=== PATIENT | male | born 1935 | race Caucasian/White ===

== ENCOUNTER 2017-05-02 17:28 | Observation (INO) | payer MEDICARE, OTHER ==
[2017-05-02 21:05] LABS: ADD MAN DIFF? NO
[2017-05-02 21:06] LABS: WHITE BLOOD COUNT 8.5 10^3/ul (4.8-10.8)
[2017-05-02 21:06] LABS: BASOPHILS % 0.4 % (0.0-2.0); EOSINOPHILS # 0.3 10^3/ul (0.0-0.5); EOSINOPHILS % 3.8 % (0.0-7.0); HEMATOCRIT 28.3 % (42.0-52.0); HEMOGLOBIN 9.6 g/dl (14.0-18.0); LYMPHOCYTES # 1.5 10^3/ul (0.8-2.9); LYMPHOCYTES % 17.2 % (15.0-51.0); MEAN CORPUSCULAR HEMOGLOBIN 32.4 pg (29.0-33.0); MEAN CORPUSCULAR HGB CONC 33.9 g/dl (32.0-37.0); MEAN CORPUSCULAR VOLUME 95.6 fl (82.0-101.0); MEAN PLATELET VOLUME 9.9 fl (7.4-10.4); MONOCYTES % 11.2 % (0.0-11.0); NEUTROPHIL # 5.7 10^3/ul (1.6-7.5); PLATELET COUNT 222 10^3/UL (140-415); RED BLOOD COUNT 2.96 10^6/ul (4.70-6.10); RED CELL DISTRIBUTION WIDTH 12.1 % (11.5-14.5)
[2017-05-02 21:34] LABS: ANION GAP 18 (8-16); BLOOD UREA NITROGEN 31 mg/dl (7-20); CARBON DIOXIDE 23 mmol/L (21-31); CHLORIDE 99 mmol/L (97-110); CREATININE 1.24 mg/dl (0.61-1.24); GLUCOSE 71 mg/dl (70-220); POTASSIUM 5.5 mmol/L (3.5-5.1); SODIUM 134 mmol/L (135-144)
[2017-05-02] MEDS: morphine 4 MG/ML VIAL IV (21:35)
[2017-05-02] MEDS: ONDANSETRON 4 MG INJ IV (21:36)
[2017-05-02] MEDS: ASPIRIN 81 MG TAB PO (21:36)
[2017-05-02] MEDS: NITROGLYCERIN 2% 1 GM OINT PKT TD (21:36)
[2017-05-02 21:43] LABS: B-TYPE NATRIURETIC PEPTIDE 1060 PG/ML (0-450)
[2017-05-02 21:51] LABS: TROPONIN-I < 0.012 ng/ml (0.00-0.12)
[2017-05-02] MEDS ORDERED: ALPRAZOLAM 1 MG TAB PO (22:30)
[2017-05-02] MEDS ORDERED: ONDANSETRON 4 MG INJ IV (22:30)
[2017-05-02] MEDS ORDERED: morphine 2 MG INJ IV (22:30)
[2017-05-02] MEDS ORDERED: DOCUSATE SODIUM 100 MG CAP PO (22:30)
[2017-05-02] MEDS ORDERED: ACETAMINOPHEN 325 MG TAB PO (22:30)
[2017-05-02] MEDS ORDERED: ONDANSETRON 4 MG TAB PO (22:30)
[2017-05-02] MEDS ORDERED: NACL 0.9% 3 ML SYG IV (22:30)
[2017-05-02] MEDS ORDERED: BISACODYL (EC) 5 MG TAB PO (22:30)
[2017-05-03] MEDS: NA POLYST SULFON 15 GM/60 ML BTL PO (00:05)
[2017-05-03] MEDS: DEXTROSE 5%-0.45% NACL 1,000 ML IV ×2 (00:06→13:14)
[2017-05-03 03:17] LABS: CREATINE KINASE 85 IU/L (23-200)
[2017-05-03 03:30] LABS: CK-MB 1.72 ng/ml (0.0-2.4); TROPONIN-I < 0.012 ng/ml (0.00-0.12)
[2017-05-03] MEDS ORDERED: GLUCAGON 1 MG INJ IM (04:15)
[2017-05-03] MEDS ORDERED: GLUCOSE GEL 15 GRAM TUBE BUCCAL (04:15)
[2017-05-03] MEDS ORDERED: DEXTROSE 50% 50 ML SYRINGE IV ×2 (04:15)
[2017-05-03] MEDS ORDERED: GLUCOSE GEL 15 GRAM TUBE PO ×2 (04:15)
[2017-05-03] MEDS: PANTOPRAZOLE (EC) 40 MG TAB PO (05:43)
[2017-05-03] MEDS: NITROGLYCERIN (SL) 0.4 MG TAB SL (05:44)
[2017-05-03 06:32] LABS: ADD MAN DIFF? NO
[2017-05-03 06:44] LABS: WHITE BLOOD COUNT 5.8 10^3/ul (4.8-10.8)
[2017-05-03 06:44] LABS: BASOPHILS % 0.2 % (0.0-2.0); EOSINOPHILS # 0.4 10^3/ul (0.0-0.5); HEMATOCRIT 24.7 % (42.0-52.0); HEMOGLOBIN 8.5 g/dl (14.0-18.0); LYMPHOCYTES # 1.5 10^3/ul (0.8-2.9); LYMPHOCYTES % 24.9 % (15.0-51.0); MEAN CORPUSCULAR HEMOGLOBIN 32.4 pg (29.0-33.0); MEAN CORPUSCULAR HGB CONC 34.4 g/dl (32.0-37.0); MEAN CORPUSCULAR VOLUME 94.3 fl (82.0-101.0); MEAN PLATELET VOLUME 9.7 fl (7.4-10.4); MONOCYTE # 0.7 10^3/ul (0.3-0.9); MONOCYTES % 11.5 % (0.0-11.0); NEUTROPHIL # 3.3 10^3/ul (1.6-7.5); NEUTROPHILS % 56.9 % (39.0-77.0); PLATELET COUNT 189 10^3/UL (140-415); RED BLOOD COUNT 2.62 10^6/ul (4.70-6.10); RED CELL DISTRIBUTION WIDTH 12.1 % (11.5-14.5)
[2017-05-03 07:12] LABS: ALANINE AMINOTRANSFERASE 29 IU/L (13-69); ALBUMIN 3.8 g/dl (3.3-4.9); ALBUMIN/GLOBULIN RATIO 1.35; ALKALINE PHOSPHATASE 93 IU/L (42-121); ANION GAP 15 (8-16); ASPARTATE AMINO TRANSFERASE 24 IU/L (15-46); BILIRUBIN,INDIRECT 0.2 mg/dl (0-1.1); BILIRUBIN,TOTAL 0.2 mg/dl (0.2-1.3); BLOOD UREA NITROGEN 24 mg/dl (7-20); CALCIUM 8.6 mg/dl (8.4-10.2); CARBON DIOXIDE 25 mmol/L (21-31); CHLORIDE 103 mmol/L (97-110); CHOLESTEROL 105 mg/dl (100-200); CREATININE 1.08 mg/dl (0.61-1.24); GLUCOSE 90 mg/dl (70-220); HDL CHOLESTEROL 51 mg/dl (31-75); LDL CHOLESTEROL,CALCULATED 37 mg/dl; MAGNESIUM 2.1 mg/dl (1.7-2.5); POTASSIUM 4.5 mmol/L (3.5-5.1); SODIUM 138 mmol/L (135-144); TOTAL PROTEIN 6.6 g/dl (6.1-8.1); TRIGLYCERIDES 84 mg/dl (0-149)
[2017-05-03 07:17] LABS: HEMOGLOBIN A1C 6.4 % (0-5.9)
[2017-05-03] MEDS: INSULIN ASPART [NOVOLOG] 3 ML PEN SC ×4 (08:00→20:39)
[2017-05-03 08:43] LABS: CREATINE KINASE 75 IU/L (23-200)
[2017-05-03 08:51] LABS: CK INDEX 2.3
[2017-05-03 08:52] LABS: CK-MB 1.73 ng/ml (0.0-2.4); TROPONIN-I < 0.012 ng/ml (0.00-0.12)
[2017-05-03] MEDS ORDERED: POTASSIUM CHLORIDE (SR) 10 MEQ TAB PO (09:00)
[2017-05-03] MEDS: FERROUS SULFATE (EC) 325 MG TAB PO ×2 (09:31→20:28)
[2017-05-03] MEDS: FUROSEMIDE 20 MG TAB PO (09:31)
[2017-05-03] MEDS: CLOPIDOGREL 75 MG TAB PO (09:31)
[2017-05-03] MEDS: ISOSORBIDE MONONITRATE(SR)30 MG TAB PO (09:31)
[2017-05-03] MEDS: AMLODIPINE 10 MG TAB PO (09:31)
[2017-05-03] MEDS: GABAPENTIN 300 MG CAP PO ×2 (09:32→20:28)
[2017-05-03] MEDS: FINASTERIDE 5 MG TAB PO (10:06)
[2017-05-03] MEDS: LOSARTAN 25 MG TAB PO (13:14)
[2017-05-03 16:03] LABS: IRON 56 ug/dl (35-150)
[2017-05-03 16:13] LABS: % IRON SATURATION 16 % SAT (22-52); TOTAL IRON BINDING CAPACITY 343 ug/dl (241-421)
[2017-05-03] MEDS: TAMSULOSIN (SR) 0.4 MG CAP PO (20:28)
[2017-05-03] MEDS: ATORVASTATIN 10 MG TAB PO (20:28)
[2017-05-03] MEDS: MEMANTINE 5 MG TAB PO (20:29)
[2017-05-03] MEDS: ACCU-CHEK XX (20:39)
[2017-05-03] MEDS ORDERED: hydrALAzine 20 MG INJ IV (21:00)
[2017-05-03] MEDS: ALPRAZOLAM 0.25 MG TAB PO (21:56)
[2017-05-04] MEDS: DEXTROSE 5%-0.45% NACL 1,000 ML IV (03:31)
[2017-05-04] MEDS: PANTOPRAZOLE (EC) 40 MG TAB PO (06:09)
[2017-05-04 06:43] LABS: ADD MAN DIFF? NO
[2017-05-04 06:49] LABS: BASOPHILS % 0.3 % (0.0-2.0); EOSINOPHILS # 0.3 10^3/ul (0.0-0.5); EOSINOPHILS % 3.3 % (0.0-7.0); HEMATOCRIT 26.7 % (42.0-52.0); LYMPHOCYTES # 1.2 10^3/ul (0.8-2.9); LYMPHOCYTES % 13.7 % (15.0-51.0); MEAN CORPUSCULAR HGB CONC 33.7 g/dl (32.0-37.0); MEAN PLATELET VOLUME 9.7 fl (7.4-10.4); NEUTROPHIL # 6.3 10^3/ul (1.6-7.5); NEUTROPHILS % 71.2 % (39.0-77.0); PLATELET COUNT 208 10^3/UL (140-415); RED BLOOD COUNT 2.81 10^6/ul (4.70-6.10)
[2017-05-04 06:49] LABS: WHITE BLOOD COUNT 8.8 10^3/ul (4.8-10.8)
[2017-05-04] MEDS: INSULIN ASPART [NOVOLOG] 3 ML PEN SC ×4 (08:00→20:28)
[2017-05-04] MEDS: ISOSORBIDE MONONITRATE(SR)30 MG TAB PO (08:32)
[2017-05-04] MEDS: GABAPENTIN 300 MG CAP PO ×2 (08:32→20:28)
[2017-05-04] MEDS: LOSARTAN 25 MG TAB PO (08:32)
[2017-05-04] MEDS: FINASTERIDE 5 MG TAB PO (08:32)
[2017-05-04] MEDS: CLOPIDOGREL 75 MG TAB PO (08:32)
[2017-05-04] MEDS: AMLODIPINE 10 MG TAB PO (08:32)
[2017-05-04] MEDS: FERROUS SULFATE (EC) 325 MG TAB PO ×2 (08:32→20:28)
[2017-05-04] MEDS: REGADENOSON 0.4 MG/5 ML SYG (14:00)
[2017-05-04] MEDS: ATORVASTATIN 10 MG TAB PO (20:28)
[2017-05-04] MEDS: TAMSULOSIN (SR) 0.4 MG CAP PO (20:29)
[2017-05-04] MEDS: MEMANTINE 5 MG TAB PO (20:29)
[2017-05-04] MEDS: METOPROLOL 25 MG TAB PO (20:30)
[2017-05-04] MEDS: ACCU-CHEK XX (20:30)
[2017-05-04] MEDS: ALPRAZOLAM 0.25 MG TAB PO (21:54)
[2017-05-05] MEDS: PANTOPRAZOLE (EC) 40 MG TAB PO (05:55)
[2017-05-05 07:18] LABS: ADD MAN DIFF? NO
[2017-05-05 07:52] LABS: BASOPHILS % 0.4 % (0.0-2.0); EOSINOPHILS # 0.2 10^3/ul (0.0-0.5); HEMOGLOBIN 9.3 g/dl (14.0-18.0); LYMPHOCYTES # 1.8 10^3/ul (0.8-2.9); LYMPHOCYTES % 22.7 % (15.0-51.0); MEAN CORPUSCULAR HEMOGLOBIN 32.2 pg (29.0-33.0); MEAN CORPUSCULAR HGB CONC 34.4 g/dl (32.0-37.0); MEAN CORPUSCULAR VOLUME 93.4 fl (82.0-101.0); MEAN PLATELET VOLUME 9.7 fl (7.4-10.4); MONOCYTE # 0.8 10^3/ul (0.3-0.9); MONOCYTES % 10.4 % (0.0-11.0); NEUTROPHIL # 5.1 10^3/ul (1.6-7.5); NEUTROPHILS % 63.3 % (39.0-77.0); PLATELET COUNT 219 10^3/UL (140-415); RED BLOOD COUNT 2.89 10^6/ul (4.70-6.10)
[2017-05-05 07:52] LABS: WHITE BLOOD COUNT 8.1 10^3/ul (4.8-10.8)
[2017-05-05] MEDS: INSULIN ASPART [NOVOLOG] 3 ML PEN SC ×2 (08:19→12:23)
[2017-05-05] MEDS: GABAPENTIN 300 MG CAP PO (09:47)
[2017-05-05] MEDS: METOPROLOL 25 MG TAB PO (09:50)
[2017-05-05] MEDS: CLOPIDOGREL 75 MG TAB PO (09:50)
[2017-05-05] MEDS: ISOSORBIDE MONONITRATE(SR)30 MG TAB PO (09:50)
[2017-05-05] MEDS: AMLODIPINE 10 MG TAB PO (09:51)
[2017-05-05] MEDS: FERROUS SULFATE (EC) 325 MG TAB PO (09:51)
[2017-05-05] MEDS: FINASTERIDE 5 MG TAB PO (09:51)
[2017-05-05] MEDS: LOSARTAN 25 MG TAB PO (09:51)
[2017-05-05] MEDS: INFLUENZA VIRUS VACCINE 0.5 ML (DISPENSING) IM* (12:29)
[2017-05-06] MEDS ORDERED: ASPIRIN 81 MG TAB PO (09:00)
== END 2017-05-05 16:42 | disposition home or self-care (01) ==
LOC: MS4 22:17 → E/R 17:28
DX: R07.89 Other chest pain (principal); I25.10 Atherosclerotic heart disease of native coronary artery without angina pectoris; E11.9 Type 2 diabetes mellitus without complications; N40.0 Benign prostatic hyperplasia without lower urinary tract symptoms; I11.0 Hypertensive heart disease with heart failure; I50.30 Unspecified diastolic (congestive) heart failure; I27.20 Pulmonary hypertension, unspecified; E78.5 Hyperlipidemia, unspecified; E78.00 Pure hypercholesterolemia, unspecified; F03.90 Unspecified dementia, unspecified severity, without behavioral disturbance, psychotic disturbance, mood disturbance, and anxiety; M19.90 Unspecified osteoarthritis, unspecified site; Z88.2 Allergy status to sulfonamides; Z95.0 Presence of cardiac pacemaker; Z87.891 Personal history of nicotine dependence; Z79.02 Long term (current) use of antithrombotics/antiplatelets; Z79.4 Long term (current) use of insulin
CPT/HCPCS: 36415; 71045; 78452; 80048; 80053; 80061; 82550; 82553; 82962; 83036; 83540; 83735; 83880; 84443; 84484; 85025; 90686; 93005; 93017; 93306; 96374; 96375; 99285-25; G0378